=== PATIENT | male | born 1960 | race Caucasian/White ===

== ENCOUNTER 2018-07-06 23:12 | Observation (INO) | payer OTHER, MEDICARE, SELFPAY ==
[2018-07-06] VITALS (7 sets, daily range): BP systolic 119; BP diastolic 63; PULSE 124–129; RESP 12–21; TEMP 40.1; O2SAT 93–96
--- NOTE | 2018-07-06 23:17 | W.ED.GENAD ---
Discharge Plan Disposition Patient Disposition: [facility] INPATIENT Condition: Fair Discharge Details Chief Complaint: Urinary Clinical Impression: Acute kidney injury, Sepsis due to urinary tract infection Reason For Visit: BONNY Primary Care Provider: [facility] ED Provider: Provider,Temporary Home Meds and New Rx's Prescriptions: No Action amitriptyline 150 MG tablet 150 mg PO HS RF: 0 glyburide 5 MG tablet 10 mg PO BID RF: 0 losartan 100 MG tablet 100 mg PO QAM RF: 0 amlodipine 10 MG tablet 10 mg PO DAILY RF: 0 aspirin [Aspir-81] 81 MG tablet,delayed release (DR/EC) 81 mg PO DAILY RF: 0 cyclobenzaprine 10 MG tablet 10 mg PO HS RF: 0 cyanocobalamin (vitamin B-12) 1,000 MCG/1 ML solution 1,000 mcg IJ Q30D RF: 0 insulin glargine [Lantus U-100 Insulin] 100 UNITS/ML solution 50 units Sub-Q HS RF: 0 oxycodone 5 MG tablet 5 mg PO Q4H WHILE AWAKE PRNRF: 0 acetaminophen 325 MG tablet 650 mg PO TID PRNRF: 0 fluticasone 16 GM spray,suspension 1 spry Intranasal BID RF: 0 cholecalciferol (vitamin D3) 1,000 UNIT capsule 1,000 unit PO DAILY RF: 0 atorvastatin [Lipitor] 40 MG tablet 40 mg PO QPM RF: 0 multivitamin [Multi-Day] 1 EACH tablet 1 tab PO DAILY RF: 0 modafinil 200 MG tablet 200 mg PO BID RF: 0 ascorbic acid (vitamin C) [Vitamin C] 500 MG tablet 1 tab PO DAILY RF: 0 ferrous sulfate 325 MG tablet 1 tab PO DAILY RF: 0 ibuprofen 200 MG tablet 400 mg PO DIRECTED RF: 0 cinnamon bark 500 MG capsule 1,000 mg PO BID RF: 0 Patient's Own Medication 1 EACH Misc 2 tab PO HS RF: 0 Discharge Data Discharge Physician: Jerad Jansen Medical Decision Making [facility] Narrative Medical decision making narrative: 58 yo male with hx of DM, HTN, HLD, who comes in with fever and weakness worsening throughout the day and difficulty urinating starting this morning. HE is moving from this area to [place] and came back from [place] recently and states he didn't stop often to urinate. HE denies headaches, cough, abdominal pain other than mild suprapubic discomfort. Pt is noted to have a fever and tachycardia here, suspect sepsis, and given symptoms likely urinary source. Will give fluids and give dose of ceftriaxone while awaiting lab results. Pt remains hd stable, HR now 110, feeling mildly better. Labs show wbc of 22, lactate of 1.5, and urine appears infected as well. Ceftriaxone given ,will admit for urosepsis Differential Diagnosis pyelo, urosepsis, pneumonia Imaging Data Radiologic Study: Attestation: I personally reviewed and interpreted this imaging study as follows: Imaging: X-Ray My impression: no acute findings Radiologist's impression: no acute findings Lab Data Lab results reviewed: Yes I reviewed the patient's lab results. HPI - General Adult General Mode of arrival: EMS. Date/Time Provider Initiated Documentation: 07/06/18 23:14. Limitations to Documentation: no limitations. Information obtained by: patient. History of Present Illness 58 year old M presents to the emergency department with the chief complaint of weakness, described as moderate, and is localized to the abdomen (complaining of suprapubic pain). Patient reports no radiation. Patient started experiencing this hour(s) (15) and it has been other (worsening). No relieving factors improve symptom(s), No exacerbating factors reported . Patient notes other (difficulty urinating, fevers). Patient did receive the following treatments prior to arrival, none Related Data Home Medications Medication Instructions Recorded Confirmed amitriptyline 150 mg PO HS 03/19/13 07/06/18 amlodipine 10 mg PO DAILY 03/19/13 07/06/18 aspirin [Aspir-81] 81 mg PO DAILY 03/19/13 07/06/18 cyanocobalamin (vitamin B-12) 1,000 mcg IJ Q30D 03/19/13 07/06/18 cyclobenzaprine 10 mg PO HS 03/19/13 07/06/18 glyburide 10 mg PO BID 03/19/13 07/06/18 losartan 100 mg PO QAM 03/19/13 07/06/18 insulin glargine [Lantus U-100 50 units SUB-Q HS 06/27/14 07/06/18 Insulin] oxycodone 5 mg PO Q4H WHILE AWAKE PRN 06/27/14 07/06/18 acetaminophen 650 mg PO TID PRN 08/23/14 07/06/18 cholecalciferol (vitamin D3) 1,000 unit PO DAILY 08/23/14 07/06/18 fluticasone 1 spry INTRANASAL BID 08/23/14 07/06/18 Patient's Own Medication 2 tab PO HS 11/22/16 07/06/18 ascorbic acid (vitamin C) [Vitamin 1 tab PO DAILY 11/22/16 07/06/18 C] atorvastatin [Lipitor] 40 mg PO QPM 11/22/16 07/06/18 cinnamon bark 1,000 mg PO BID 11/22/16 07/06/18 ferrous sulfate 1 tab PO DAILY 11/22/16 07/06/18 ibuprofen 400 mg PO DIRECTED 11/22/16 07/06/18 modafinil 200 mg PO BID 11/22/16 07/06/18 multivitamin [Multi-Day] 1 tab PO DAILY 11/22/16 07/06/18 Allergies Allergy/AdvReac Type Severity Reaction Status Date / Time No Known Allergies Allergy Verified 07/06/18 23:22 Review of Systems Review of Systems All systems reviewed & are unremarkable except as noted in HPI and below Constitutional Reports chills, Reports fever(s) and Reports weakness Eyes Patient Denies loss of vision ENT Denies change in voice Cardiovascular Denies chest pain and Denies dyspnea Respiratory Denies dyspnea Gastrointestinal Denies abdominal pain, Denies nausea and Denies vomiting Genitourinary Reports dysuria Musculoskeletal Denies joint swelling Integumentary/Breasts Denies rash Neurologic Denies loss of vision and Reports weakness Psychiatric Denies depression Endocrine Denies cold intolerance and Denies heat intolerance Allergic/Immunologic Reports urticaria [facility] Social History Smoking/Tobacco Use Status: Current-Occasional Exam Const General: no acute distress Orientation: alert [facility] Head: normal to inspection Ears: external ears normal General nose exam: external nose normal Eyes General: appearance normal, both eyes and all related structures Neck Neck: normal visual inspection Resp Effort & Inspection: normal respiratory effort and able to speak in complete sentences Cardio Rate: tachycardic Rhythm: regular rhythm GI Inspection: obesity Palpation: soft, no guarding and nontender Skin General skin exam: no rashes or lesions noted Neuro General: alert and oriented x3 Extrem General: normal to inspection Psych Mental Status: mental status grossly normal
--- NOTE | 2018-07-06 23:23 | ED.GENADUL_ITS ---
Discharge Plan Disposition Patient Disposition: [facility] INPATIENT Condition: Fair Discharge Details Chief Complaint: Urinary Clinical Impression: Acute kidney injury, Sepsis due to urinary tract infection Reason For Visit: BONNY [facility] Care [facility] Provider: Provider,Temporary Home Meds and New Rx's Prescriptions: No Action amitriptyline 150 MG tablet 150 mg PO HS RF: 0 glyburide 5 MG tablet 10 mg PO BID RF: 0 losartan 100 MG tablet 100 mg PO QAM RF: 0 amlodipine 10 MG tablet 10 mg PO DAILY RF: 0 aspirin [Aspir-81] 81 MG tablet,delayed release (DR/EC) 81 mg PO DAILY RF: 0 cyclobenzaprine 10 MG tablet 10 mg PO HS RF: 0 cyanocobalamin (vitamin B-12) 1,000 MCG/1 ML solution 1,000 mcg IJ Q30D RF: 0 insulin glargine [Lantus U-100 Insulin] 100 UNITS/ML solution 50 units Sub-Q HS RF: 0 oxycodone 5 MG tablet 5 mg PO Q4H WHILE AWAKE PRNRF: 0 acetaminophen 325 MG tablet 650 mg PO TID PRNRF: 0 fluticasone 16 GM spray,suspension 1 spry Intranasal BID RF: 0 cholecalciferol (vitamin D3) 1,000 UNIT capsule 1,000 unit PO DAILY RF: 0 atorvastatin [Lipitor] 40 MG tablet 40 mg PO QPM RF: 0 multivitamin [Multi-Day] 1 EACH tablet 1 tab PO DAILY RF: 0 modafinil 200 MG tablet 200 mg PO BID RF: 0 ascorbic acid (vitamin C) [Vitamin C] 500 MG tablet 1 tab PO DAILY RF: 0 ferrous sulfate 325 MG tablet 1 tab PO DAILY RF: 0 ibuprofen 200 MG tablet 400 mg PO DIRECTED RF: 0 cinnamon bark 500 MG capsule 1,000 mg PO BID RF: 0 Patient's Own Medication 1 EACH Misc 2 tab PO HS RF: 0 Discharge Data Discharge Physician: Jerad Jansen Medical Decision Making [facility] Narrative Medical decision making narrative: 58 yo male with hx of DM, HTN, HLD, who comes in with fever and weakness worsening throughout the day and difficulty urinating starting this morning. HE is moving from this area to [place] and came back from [place] recently and states he didn't stop often to urinate. HE denies headaches, cough, abdominal pain other than mild suprapubic discomfort. Pt is noted to have a fever and tachycardia here, suspect sepsis, and given symptoms likely urinary source. Will give fluids and give dose of ceftriaxone while awaiting lab results. Pt remains hd stable, HR now 110, feeling mildly better. Labs show wbc of 22, lactate of 1.5, and urine appears infected as well. Ceftriaxone given ,will admit for urosepsis Differential Diagnosis pyelo, urosepsis, pneumonia Imaging Data Radiologic Study: Attestation: I personally reviewed and interpreted this imaging study as follows: Imaging: X-Ray My impression: no acute findings Radiologist's impression: no acute findings Lab Data Lab results reviewed: Yes I reviewed the patient's lab results. HPI - General Adult General Mode of arrival: EMS . Date/Time Provider Initiated Documentation: 07/06/18 23:14 . Limitations to Documentation: no limitations . Information obtained by: patient . History of Present Illness 58 year old M presents to the emergency department with the chief complaint of weakness, described as moderate, and is localized to the abdomen ( complaining of suprapubic pain). Patient reports no radiation. Patient started experiencing this hour(s) (15) and it has been other (worsening). No relieving factors improve symptom(s), No exacerbating factors reported . Patient notes other (difficulty urinating, fevers). Patient did receive the following treatments prior to arrival, none Related Data Home Medications Medication Instructions Recorded Confirmed amitriptyline 150 mg PO HS 03/19/13 07/06/18 amlodipine 10 mg PO DAILY 03/19/13 07/06/18 aspirin [Aspir-81] 81 mg PO DAILY 03/19/13 07/06/18 cyanocobalamin (vitamin B-12) 1,000 mcg IJ Q30D 03/19/13 07/06/18 cyclobenzaprine 10 mg PO HS 03/19/13 07/06/18 glyburide 10 mg PO BID 03/19/13 07/06/18 losartan 100 mg PO QAM 03/19/13 07/06/18 insulin glargine [Lantus U-100 50 units SUB-Q HS 06/27/14 07/06/18 Insulin] oxycodone 5 mg PO Q4H WHILE AWAKE PRN 06/27/14 07/06/18 acetaminophen 650 mg PO TID PRN 08/23/14 07/06/18 cholecalciferol (vitamin D3) 1,000 unit PO DAILY 08/23/14 07/06/18 fluticasone 1 spry INTRANASAL BID 08/23/14 07/06/18 Patient's Own Medication 2 tab PO HS 11/22/16 07/06/18 ascorbic acid (vitamin C) [Vitamin 1 tab PO DAILY 11/22/16 07/06/18 C] atorvastatin [Lipitor] 40 mg PO QPM 11/22/16 07/06/18 cinnamon bark 1,000 mg PO BID 11/22/16 07/06/18 ferrous sulfate 1 tab PO DAILY 11/22/16 07/06/18 ibuprofen 400 mg PO DIRECTED 11/22/16 07/06/18 modafinil 200 mg PO BID 11/22/16 07/06/18 multivitamin [Multi-Day] 1 tab PO DAILY 11/22/16 07/06/18 Allergies Allergy/AdvReac Type Severity Reaction Status Date / Time No Known Allergies Allergy Verified 07/06/18 23:22 Review of Systems Review of Systems All systems reviewed & are unremarkable except as noted in HPI and below Constitutional Reports chills, Reports fever(s) and Reports weakness Eyes Patient Denies loss of vision ENT Denies change in voice Cardiovascular Denies chest pain and Denies dyspnea Respiratory Denies dyspnea Gastrointestinal Denies abdominal pain, Denies nausea and Denies vomiting Genitourinary Reports dysuria Musculoskeletal Denies joint swelling Integumentary/Breasts Denies rash Neurologic Denies loss of vision and Reports weakness Psychiatric Denies depression Endocrine Denies cold intolerance and Denies heat intolerance Allergic/Immunologic Reports urticaria [facility] Social History Smoking/Tobacco Use Status: Current-Occasional Exam Const General: no acute distress Orientation: alert [facility] Head: normal to inspection Ears: external ears normal General nose exam: external nose normal Eyes General: appearance normal, both eyes and all related structures Neck Neck: normal visual inspection Resp Effort & Inspection: normal respiratory effort and able to speak in complete sentences Cardio Rate: tachycardic Rhythm: regular rhythm GI Inspection: obesity Palpation: soft, no guarding and nontender Skin General skin exam: no rashes or lesions noted Neuro General: alert and oriented x3 Extrem General: normal to inspection Psych Mental Status: mental status grossly normal
[2018-07-06] MEDS: Acetaminophen 500 MG TAB 1000 MG PO (23:42)
[2018-07-06] MEDS: Normal Saline 1,000 ML 1000 ML IV (23:43)
[2018-07-06 23:44] LABS: Lactate-non-spesis 1.5 mmol/L (0.6-1.4)
[2018-07-06 23:53] LABS: Bilirubin Negative (Negative); Blood Trace-intact (Negative); Glucose Negative (Negative); Ketones Trace mg/dL (Negative); Leukocyte Esterase Small (Negative); Nitrite Positive (Negative); Urobilinogen 0.2 EU/dL (Up TO 0.2)
--- NOTE | 2018-07-06 23:55 | DI.RAD_ITS ---
SYMPTOM/DIAGNOSIS: FEVER PORTABLE AP CHEST: Comparison is made with 11/21/16. The exam is limited by respiratory motion and poor pulmonary inflation. The heart size is within normal limits for projection. The lungs are grossly clear. IMPRESSION: Limited exam. No gross evidence of an acute abnormality.
[2018-07-07] VITALS (53 sets, daily range): BP systolic 72–144; BP diastolic 36–89; PULSE 53–134; RESP 11–29; TEMP 36.8–39.2; O2SAT 91–98
[2018-07-07 00:02] LABS: Abs Immature Grans 0.08 k/cumm (0.0-0.09); HCT 30.1 % (40.0-50.0); HGB 10.2 g/dL (13.5-17.5); Mean Corp. HGB Concentration 33.9 g/dL (32.0-36.0); Mean Corpuscular Hemoglobin 30.2 pg (27.0-33.0); Mean Corpuscular Volume 89.1 fL (80-95); Mean Platelet Volume 9.7 fL (8.0-11.0); Platelet Count 331 x1000/uL (130-400); RBC 3.38 m/cumm (4.50-6.00); White Blood Cell Count 22.48 k/cumm (4.4-10.8)
[2018-07-07 00:05] LABS: Clarity Sl Cloudy
[2018-07-07 00:06] LABS: Bacteria Many HPF (Negative); C & S Indicated? C&S Done As Ordered; Casts Negative LPF (Negative); Crystals Negative HPF (Negative); Epithelial Cells Negative HPF (Negative); Mucus Negative (Negative); Other Cells Negative (Negative); RBC Negative (0-2); WBC >50 HPF (0-5)
[2018-07-07 00:17] LABS: ALT 42 U/L (12-78); AST 52 U/L (15-37); Alkaline Phosphatase 83 U/L (46-116); Anion Gap 11.6 mmol/L (3-11); BUN 27 mg/dL (7-18); Bilirubin, Total 0.6 mg/dL (0.2-1.0); CO2 24.4 mmol/L (21.0-32.0); CREATININE 1.34 mg/dL (0.70-1.30); Calcium 9.2 mg/dL (8.5-10.1); Chloride 98 mmol/L (98-107); Estimated GFR 54.56 (mL/min/1.73m2); Glucose 220 mg/dL (70-100); Magnesium 1.5 mg/dL (1.8-2.4); Potassium 4.3 mmol/L (3.5-5.1); Sodium 134 mmol/L (136-145); Total Protein 7.4 g/dL (6.4-8.2)
[2018-07-07 00:20] LABS: Absolute Lymphocyte Count 2.25 k/cumm (1.2-3.4); Absolute Monocyte Count 1.35 k/cumm (0.11-0.7); Absolute Neutrophil Count 18.88 k/cumm (1.2-6.7)
[2018-07-07 00:21] LABS: Diff Comment Manual Differential; RBC Morphology Normal
[2018-07-07] MEDS: Normal Saline Flush 10 ML SYR IVP (00:24)
--- NOTE | 2018-07-07 00:36 | DI.VRAD_ITS ---
EXAM: XR Chest, 1 View CLINICAL HISTORY: 58 years old, male; Signs and symptoms; Fever TECHNIQUE: Frontal view of the chest. COMPARISON: CR - CHEST 2 VIEWS PA,LAT 11/21/2016 8:34 PM FINDINGS: Lungs: Pulmonary vasculature is within normal limits. Lungs are clear. Pleural space: No pneumothorax. No pleural effusion. Heart: Cardiomediastinal silhouette is within normal limits taking into account technique. Mediastinum: See above. Bones/joints: Osseous structures are within normal limits. IMPRESSION: No acute findings in the chest. Dictated and Authenticated by: Lizzeth Horton MD. Ordering:GENIA BARLOW MD
[2018-07-07] MEDS: Lactated Ringers 1,000 ML 999 ML IV (01:16)
[2018-07-07] MEDS: oxyCODONE 5 MG TAB PO ×4 (01:52→19:41)
[2018-07-07] MEDS: Enoxaparin 40 MG/0.4 ML SYR SC (04:16)
[2018-07-07] MEDS: Acetaminophen 325 MG TAB PO ×3 (05:14→19:42)
[2018-07-07] MEDS: Lactated Ringers 1,000 ML 250 ML IV ×2 (06:40→06:42)
--- NOTE | 2018-07-07 07:00 | DI.US_ITS ---
SYMPTOM/DIAGNOSIS: UROSEPSIS RENAL ULTRASOUND: The kidneys are normal in size and show normal parenchymal thickness and echogenicity. The liver is noted to show fatty infiltration. Cholelithiasis is also present. No renal calculi or hydronephrosis is seen. There is no perinephric fluid collection. The prevoid bladder volume measured 94 cc's. A morton catheter is seen in the bladder. There is mild bladder wall thickening and trabeculation. There is no postvoid residual. IMPRESSION: Mildly thickened trabeculated bladder wall. No evidence of hydronephrosis.
[2018-07-07 07:01] LABS: Abs Immature Grans 0.06 k/cumm (0.0-0.09); HCT 26.8 % (40.0-50.0); HGB 8.7 g/dL (13.5-17.5); Mean Corp. HGB Concentration 32.5 g/dL (32.0-36.0); Mean Corpuscular Hemoglobin 29.3 pg (27.0-33.0); Mean Corpuscular Volume 90.2 fL (80-95); Mean Platelet Volume 9.1 fL (8.0-11.0); Platelet Count 288 x1000/uL (130-400); RBC 2.97 m/cumm (4.50-6.00); White Blood Cell Count 19.49 k/cumm (4.4-10.8)
[2018-07-07 07:36] LABS: Absolute Lymphocyte Count 2.73 k/cumm (1.2-3.4); Absolute Monocyte Count 2.53 k/cumm (0.11-0.7); Absolute Neutrophil Count 14.23 k/cumm (1.2-6.7); Atypical Lymphocytes % 0
[2018-07-07] MEDS: Insulin Aspart 300 UNITS/3 ML PEN SC ×2 (08:37→12:11)
[2018-07-07] MEDS: Multivitamin TAB 1 TAB PO (08:43)
[2018-07-07] MEDS: Aspirin E.C. 81 MG TABEC PO (08:43)
[2018-07-07] MEDS: Losartan 50 MG TAB 100 MG PO (08:43)
[2018-07-07] MEDS: Ferrous Sulfate 325 MG TAB PO (08:43)
[2018-07-07] MEDS: amLODIPine 10 MG TAB PO (08:43)
[2018-07-07] MEDS: Gabapentin 600 MG TAB PO ×3 (08:43→19:42)
[2018-07-07] MEDS: MODAFINIL 200 MG TAB PO (09:43)
[2018-07-07] MEDS: metFORMIN 500 MG TAB 1000 MG PO ×2 (09:43→19:41)
--- NOTE | 2018-07-07 09:45 | PHARADMIT ---
Addendum entered by Domenica Marc 07/08/18 13:46: Pharmacy Note Subjective improved per progress note Objective HR-93 other VS okay labs are pending Assessment ceftriaxone continues, levofloxacin PO ordered blood cultures no growth at 24 hours; urine culture grew E.coli Plan possible discharge tomorrow on PO abx if remains afebrile overnight Original Note: Admission Pharmacy Clinical Review urosepsis Code Status Full Code Current Weight 132 kg Renally Cleared and Narrow Therapeutic Index Meds Crcl ~65.00 mL/min current meds okay QTc Value / Action Taken BP Control, Fever BP 111/55 Tmax 40.1 Electrolytes reviewed pending this morning, Na 134, mag 1.5 yesterday DVT Prophylaxis enoxaparin Opiate Usage / Scheduled Bowel Regimen Ordered prn/prn Plt/SCr for Heparin / Enoxaparin plt 288 SCr 1.34 yesterday INR for Warfarin n/a H/H stable, WBC/Bands h/h 8.7/26.8 wbc 19.49 Antibiotic appropriateness ceftriaxone Cultures and Sensitivities blood and urine cultures pending Surgical ABX d/c within 24 hr n/a DM control / Insulin Dosing BG 220 has metformin, scheduled glargine and aspart and sliding scale aspart ordered Heart Failure (Check EF%) (RUDDY's, B-Block, Diuretics) amlodipine, losartan IV to PO Switch n/a Home Meds Reviewed -multiple vitamin D analogs: multivitamin and cholecalciferol -ibuprofen may enhance the adverse/toxic effects of aspirin (bleed risk) -multiple [employer] depressants: oxycodone, amitriptyline, cyclobenzaprine, gabapentin Home Meds Not Ordered ascorbic acid, cyanocobalamin, glyburide, HCTZ, ibuprofen, garcinia Comments
--- NOTE | 2018-07-07 09:48 | PDOC.CMIN ---
- If Service Date Differs Date of service: 07/07/18 Time of Service: 09:48 Care Management Initial Assess REASON FOR HOSPITALIZATION:: Urosepsis. PAST MEDICAL HISTORY/PAST SURGICAL HISTORY:: Colitis, sepsis, acute kidney injury, diabetes. 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 He has been in the process of moving his belongings via truck over the course of the summer. Luis and his , Preeti, have four adult children between them; one residing in [place] and the other three in [place], [place], and [place]. He requires assistance with dressing and transportation but reports that he is independent with his other ADLs. Luis uses a wheel chair and walker when ambulating. CURRENT FUNCTIONAL STATUS:: Pt presented at interdisciplinary rounds. Luis is lying in bed in the ICU when CM visits this morning. He is engaged in conversation and is talkative. Luis reports that he purchased a home in [place], [place] and has been moving his belongings [facility] via truck over the summer. He has had several recent falls with the most recent happening at the [facility] in [place], resulting in his transfer to [facility]. He reports that he is scheduled for surgery in [place] on 07/17 and that he is due to be back in [place] on 07/13 for tests and preparation. Luis has a morton that he will likely discharge with. He reports that he rarely drinks water because he doesn't want to have to stop and pee all the time while driving. Luis is receiving IV fluids and antibiotics. ADVANCE DIRECTIVES:: None on file at [facility]. Has patient been provided with information about the portal?: No Did the patient sign up for the portal?: No CODE STATUS:: Full Code INSURANCE COVERAGE / FINANCIAL ISSUES:: Medicare, [employer]. CURRENT HOME/COMMUNITY SERVICES/EQUIPMENT:: No current home or community services. Luis uses a wheel chair and walker for ambulating. PRIMARY CARE PHYSICIAN:: [facility]. POTENTIAL DISCHARGE NEEDS:: Follow up appointment with PCP and plan of care. PATIENT/FAMILY EDUCATION NEEDS:: Discharge education, any limitations and follow up plan of care. Ask Me Three discussion. ANTICIPATED BARRIERS TO DISCHARGE:: No anticipated barriers to discharge. TRANSPORTATION:: Luis will transport via private vehicle with his friend, Miki Viramontes. PLAN:: Luis will discharge when medically ready per MD. Anticipate pt will discharge with no services and follow up with PCP in [place]. CM will continue to provide support to patient and care team regarding discharge planning and disposition.
--- NOTE | 2018-07-07 09:52 | HPE_ITS ---
CHIEF COMPLAINT Fevers, chills, rigors, urinary incontinence and dysuria. ASSESSMENT AND PLAN 1. Urosepsis. 2. Acute urinary retention, etiology is not certain, but maybe secondary to neurogenic bladder due to spinal stenosis, or may be due to diabetic neurogenic bladder. 3. Poorly controlled diabetes. 4. Spinal stenosis. 5. Anemia of undetermined etiology. Historically, he has had no melena or hematochezia, although he does have a past history of colitis. He is chronically maintained on vitamin B12 and iron supplementation. He had an acute drop overnight from 10.2 to 8.7, it is probably dilutional due to the IV fluids he has received. 6. History of essential hypertension. 7. History of hyperlipidemia. 8. Diabetic peripheral neuropathy. PLAN 1. The patient will continue to receive parenteral antibiotics with adjustment of his antibiotics based on his urine and blood cultures. 2. We will ask Urology to see him regarding acute urinary retention. I discussed the case with Dr. Gonzalo Hutson; he indicated the patient may need to maintain the Hunter catheter until after his spinal surgery. 3. Will try to get records from his [facility] [place] and [place] to find out the extent of his spinal stenosis. The patient may need further evaluation while he is hospitalized here by our Orthopedic Surgeons , and possible further imaging os his spine to see if there has been compression of his spinal stenosis. The case was signed out to Dr. Jerad Dunaway, the day hospitalist. HISTORY OF PRESENT ILLNESS This is a 58-year-old male with a past medical history of type-2 diabetes mellitus that has been under poor control until recently requiring insulin, as well as oral hypoglycemic agents, COPD, hypertension, hyperlipidemia , DJD. The patient is originally from [place], but he has been living in [place] for the past 33 years after he moved up here with his who is a [place] of [place]. They are in the process of moving back to [place]. He says that they have made three trips in the past month. Earlier this summer, he had a fall and noticing he was having trouble picking up his left leg. He saw his primary care provider at [facility] and had a workup including MRI scans of his lumbosacral spine. He was told that he had severe DJD and spinal stenosis. He was called with the results while he was in [place] earlier this summer, and he was told to go straight to the Emergency Room. [facility] [place], where he saw an Orthopedic Surgeon, and had repeat MRI scans and they have set him up tentatively for surgery for July 17, he is supposed to be back in [place] for preop testing on July 13. The patient has been having problems ambulating because of weakness in the left leg. He is unable to flex the left thigh at the hip and pick the leg up off the ground and he has been getting around with the use of a walker. He has had a series of three falls since April 02. His current complaints include fevers, chills, rigors and urinary incontinence. These have all started since his return from [place]. They left [place] TuesdayJuly 03 and by Tuesday morning, he was having fevers, chills and urinary frequency and urinary incontinence; and last night, he was acting incoherent. His family reported that he was not making any sense, and they brought him to the Emergency Room last night. He was seen by Dr. Jerad Jansen, who ordered blood and urine cultures and started him on Rocephin 2 grams IV. The patient is admitted for urosepsis. However, the other concern is that he has had acute urinary retention. Last night, we had to put a Hunter catheter in because he had 1000 cc in his bladder after a post void trial. The concern is that he may have neurogenic bladder on the basis of his spinal stenosis. The patient admits that on the trip back from [place] that he did not stop very often to void and was avoiding drinking much water for fear that he would have to stop to void. He also has not been compliant with his medications for the past few days. Prior to that, he was working to get his blood sugars under control by a combination of use of his Lantus, glyburide and metformin, along with a ketogenic diet. PAST MEDICAL/SURGICAL HISTORY 1. Type-2 diabetes mellitus for the last 20 years, currently requiring Lantus, glyburide and metformin. 2. Chronic obstructive pulmonary disease. 3. Essential hypertension. 4. Degenerative joint disease of the spine, this includes lumbosacral, as well as cervical spine. 5. Carpal tunnel surgery x2. 6. History of vasectomy. 7. History of tonsillectomy. 8. Obstructive sleep apnea for which he wears CPAP. He forgot to bring his CPAP with him from [place]. 9. History of bilateral knee surgeries with arthroscopy. 10. History of gastroesophageal reflux disease. ALLERGIES He says he has a reaction to one of his blood pressure medicines he used to be on, which caused a cough. He did not remember the name of it. MEDICATIONS Home medications include, Acetaminophen 650 mg three times a day as needed. Amitriptyline 150 mg at bedtime Amlodipine 10 mg daily. Ascorbic acid 1 tablet daily. Aspirin 81 mg daily. Atorvastatin 20 mg q p.m. ? Vitamin D3 1000 units daily. Cinnamon bark 1000 mg twice a day. Cyanocobalamin 1000 mcg IM every 30 days. Cyclobenzaprine 10 mg at bedtime. Ferrous sulfate 1 tablet daily. Fluticasone nasal spray, 1 spray each nostril twice a day. Gabapentin 600 mg t.i.d. Glyburide 10 mg p.o. b.i.d. Hydrochlorothiazide 25 mg daily. Ibuprofen 400 mg as needed. Lantus listed as 50 units at bedtime, but he told me that he is actually taking 60 units at bedtime and 66 in the morning. Losartan 100 mg q. a.m. Metformin 1000 mg twice a day. Modafinil 200 mg twice a day. Multivitamin 1 daily. Oxycodone 5 mg q. 4 hours p.r.n. pain. Ranitidine 150 mg twice a day. REVIEW OF SYSTEMS CONSTITUTIONAL - Positive fevers, chills and rigors. HEENT - He has had some recent blurred vision. He has history of blocked tear ducts. ENT - He has had some painful swallowing and complains of a sore tongue. CARDIOVASCULAR - Negative for chest pain, pressure, palpitations, or syncope. GASTROINTESTINAL - Positive for constipation. Negative for melena nor hematochezia. RESPIRATORY - He has a chronic cough that is minimally productive of whitish mucus. No purulent sputum. No hemoptysis. MUSCULOSKELETAL - Positive for chronic lower back pain and radicular pain down his left leg along with numbness in his left foot. INTEGUMENTARY - He complains of dry skin for which he uses skin lotion. NEUROLOGIC - Positive for numbness in his left foot. He also has peripheral neuropathy in both feet. He has radiculopathy down his left leg to his left foot. GENITOURINARY - See HPI. The rest of review of systems is unremarkable, except as listed in HPI. SOCIAL HISTORY He is for the last 33 years. He has three daughters from his current , and one daughter from his previous . The patient was honorably discharged from the [employer] after eight years of service. He was discharged in 1985. He has worked various jobs since then including he used to work for the [employer]. He has worked in [employer] stores in [place]. 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 Tobacco history - He is a former smoker. He quit at the age of 47. Alcohol history - He has a history of heavy alcohol use. He quit in 1983 or when he got . Although he says, he will occasionally have a beer. He says a six-pack of beer will last him all summer. FAMILY HISTORY Family history is pertinent for diabetes mellitus in his father, who has dementia, as well as large cell vasculitis. Diabetes in his paternal grandfather. There is no family history of coronary artery disease that he is aware of. His mother has Alzheimer's dementia. A paternal grandfather had leukemia. Maternal grandfather had mesothelioma due to occupational exposure. PHYSICAL EXAMINATION VITAL SIGNS - Temperature 38.2. Pulse 114 to 120. Sinus tachycardia. Blood pressure is 108/49. Respiratory rate 14. Oxygen saturation 93%. GENERAL APPEARANCE - An obese middle-age male who is alert and oriented to person, place, time and circumstance. HEENT - Remarkable in that he has an aphthous ulcer on the right side of his tongue. The rest of the oral mucosa appears to be normal. NECK - Neck is supple. No JVD. Normal carotid pulses, although tachycardic. No bruits. No cervical lymphadenopathy. LUNGS - Lungs are clear to auscultation. HEART - Heart is tachycardic without murmur, rub or gallop. ABDOMEN - Abdomen is obese, soft, and nontender. Hunter catheter is in place and draining clear yellow urine. EXTREMITIES - Lower extremities without peripheral cyanosis or edema. He has normal pedal pulses. NEUROLOGIC - He has diminished sensation to light over both feet, worse on the left compared to the right. Sensation is intact to noxious stimuli. I could not elicit DTR's in either of his ankle reflexes or knee reflexes on either side. Motor strength in the right leg was limited secondary to back pain. He seemed to have good dorsiflexion and plantar flexion of the right foot. He is also able to resist me with hip flexion and extension on the right leg. The left leg , he is unable to hold the left up against gravity. Strength at the knee and foot appear to be intact. Cranial nerves are grossly intact. Upper extremity strength is normal. Inspection, palpation and testing of sensation of the perineum, as well as digital rectal exam, the patient has intact sensation to light touch and pain over the perineum. Rectal tone is normal. He has an enlarged prostate. There was no stool in the rectal vault. LABORATORY STUDIES CMP last night showed an elevated blood sugar of 220, elevated BUN of 27, creatinine 1.34, normal electrolytes, with the acception of magnesium is low at 1.5. White count was elevated at 22,000, it has come down to 19,000 this morning. Hemoglobin was 10.2 grams, it dropped to 8.7 grams this morning. URINALYSIS - Urinalysis showed positive nitrites, trace of blood, trace of ketones, trace of protein, greater than 50 white cells per high-powered field, many bacteria.
--- NOTE | 2018-07-07 10:06 | INITIAL_ITS ---
- If Service Date Differs Date of service: 07/07/18 Time of Service: 09:48 Care Management Initial Assess REASON FOR HOSPITALIZATION:: Urosepsis. PAST MEDICAL HISTORY/PAST SURGICAL HISTORY:: Colitis, sepsis, acute kidney injury, diabetes. 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 He has been in the process of moving his belongings via truck over the course of the summer. Luis and his , Preeti, have four adult children between them; one residing in [place] and the other three in [place], [place], and [place]. He requires assistance with dressing and transportation but reports that he is independent with his other ADLs. Luis uses a wheel chair and walker when ambulating. CURRENT FUNCTIONAL STATUS:: Pt presented at interdisciplinary rounds. Luis is lying in bed in the ICU when CM visits this morning. He is engaged in conversation and is talkative. Luis reports that he purchased a home in [place], [place] and has been moving his belongings between the two [facility] via truck over the summer. He has had several recent falls with the most recent happening at the [facility] in [place], resulting in his transfer to [facility]. He reports that he is scheduled for surgery in [place] on 07/17 and that he is due to be back in [place] on for tests and preparation. Luis has a morton that he will likely discharge with. He reports that he rarely drinks water because he doesn't want to have to stop and pee all the time while driving. Luis is receiving IV fluids and antibiotics. ADVANCE DIRECTIVES:: None on file at [facility]. Has patient been provided with information about the portal?: No Did the patient sign up for the portal?: No CODE STATUS:: Full Code INSURANCE COVERAGE / FINANCIAL ISSUES:: Medicare, [employer]. CURRENT HOME/COMMUNITY SERVICES/EQUIPMENT:: No current home or community services. Luis uses a wheel chair and walker for ambulating. PRIMARY CARE PHYSICIAN:: [facility]. POTENTIAL DISCHARGE NEEDS:: Follow up appointment with PCP and plan of care. PATIENT/FAMILY EDUCATION NEEDS:: Discharge education, any limitations and follow up plan of care. Ask Me Three discussion. ANTICIPATED BARRIERS TO DISCHARGE:: No anticipated barriers to discharge. TRANSPORTATION:: Luis will transport via private vehicle with his friend, Miki Viramontes. PLAN:: Luis will discharge when medically ready per MD. Anticipate pt will discharge with no services and follow up with PCP in [place]. CM will continue to provide support to patient and care team regarding discharge planning and disposition.
--- NOTE | 2018-07-07 10:27 | W.UROLOGYCON ---
Date of service: 07/07/18 Time of Service: 11:55 History of Present Illness Chief Complaint: Incomplete Bladder emptying Narrative: This is a 58-year-old who usually receive his medical care through the [facility] system. He and his are in the process of moving from [place] out to [place]. Over the past 3-6 months, he has been having difficulty raising the left leg. He has been sustaining multiple falls. Initially he walked with the aid of a cane. More recently, he has needed a walker. He was evaluated by his providers at the [facility] system in [place] in February of this year. He was identified as having significant spinal stenosis. The patient is unable to tell me exactly what level was involved. The patient tells me that he received a call from his [place] provider instructing him to go to the emergency room in [place] immediately. He has been evaluated by a spine surgeon and surgery is being planned for later this month. The spine surgeon in [place] recommended against traveling, but the patient decided to make one more trip back to [place]. During the drive, Mr. Blair estimates that they would spend up to 18 hours in the car without stopping for restroom breaks. He was not drinking much fluid. He was also having difficulty getting to the bathroom with his mobility issues. Just yesterday he began having incontinent episodes. He was voiding frequently. He could tell that he needed to void. He did not notice any discoloration to the urine, but he did notice a foul smell. He also began having fevers and chills. His family brought him to the emergency room when he became more confused. A Hunter catheter was placed in over a liter of urine was obtained. Mr. Ramesh tells me that at baseline he gets up an average of once a night to void. He is able to generate a good stream. He tells me that he always avoids a very large volumes at a time. He has never had previous urinary tract infection. He has never had a previous kidney stone. He has not had any prior urologic surgery. He is unable to recall the last time he had a bowel movement, but he tells me he does not feel constipated Review of Systems Constitutional Reports chills, Reports fever(s) and Reports frequent falls Eyes Patient Denies change in vision Cardiovascular Denies chest pain and Denies palpitations Respiratory Denies cough and Denies hemoptysis Gastrointestinal Denies abdominal pain Genitourinary Reports as per HPI Musculoskeletal Reports abnormal gait and Reports radiating pain into limb Neurologic Reports abnormal gait, Reports confusion and Reports frequent falls Psychiatric Reports confusion Endocrine Denies palpitations Hematologic/Lymphatic Denies easy bleeding PFSH Social History Smoking/Tobacco Use Status: Current-Occasional Exam Narrative Exam Narrative: He is not in current distress. He is cooperative. He feels slightly warm, but does not appear flushed or septic. His chest wall motion is normal. He does not appear short of breath at rest. His abdomen is soft with no guarding or rebound tenderness. I do not palpate the kidneys liver or spleen. A Hunter catheter is in place. The catheter is draining clear urine. The perineal sensation is intact. The external sphincter tone likewise is intact. He is awake alert and oriented. Results Labs : 07/07/18 11:05 07/06/18 23:23 Laboratory Results - last 24 hr 07/06/18 07/06/18 07/06/18 23:23 23:23 23:23 WBC 22.48 H RBC 3.38 L Hgb 10.2 L Hct 30.1 L MCV 89.1 MCH 30.2 MCHC 33.9 RDW 14.0 Plt Count 331 MPV 9.7 Immature Gran % See Differential Neutrophils % 77.0 Lymphocytes % 10.0 Monocytes % 6.0 Eosinophils % 0.0 Basophils % 0.0 Absolute Neutrophils 18.88 H Band Neutrophils 7.0 Absolute Lymphocytes 2.25 Absolute Monocytes 1.35 H Absolute Eosinophils 0.00 Absolute Basophils 0.00 Differential Comment Manual differential Atypical Lymphocytes RBC Morphology Normal Sodium 134 L Potassium 4.3 Chloride 98 Carbon Dioxide 24.4 Anion Gap 11.6 H BUN 27 H Creatinine 1.34 H Estimated GFR/1.73 m2 54.56 Glucose 220 H Lactate 1.5 H Calcium 9.2 Magnesium 1.5 L Total Bilirubin 0.6 AST 52 H ALT 42 Alkaline Phosphatase 83 Total Protein 7.4 Albumin 3.0 L Urine Color Urine Clarity Urine pH Ur Specific [place] Urine Protein Urine Ketones Urine Blood Urine Nitrite Urine Bilirubin Urine Urobilinogen Ur Leukocyte Esterase Urine RBC Urine WBC Ur Epithelial Cells Urine Crystals Urine Bacteria Urine Casts Urine Mucus Urine Other Ur Culture Indicated? Urine Glucose 09/13/18 09/14/18 09/14/18 23:47 06:45 06:45 WBC 19.49 H RBC 2.97 L Hgb 8.7 L Hct 26.8 L MCV 90.2 MCH 29.3 MCHC 32.5 RDW 14.0 Plt Count 288 MPV 9.1 Immature Gran % See Differential Neutrophils % 73.0 Lymphocytes % 14.0 Monocytes % 13.0 Eosinophils % 0.0 Basophils % 0.0 Absolute Neutrophils 14.23 H Band Neutrophils 0.0 Absolute Lymphocytes 2.73 Absolute Monocytes 2.53 H Absolute Eosinophils 0.00 Absolute Basophils 0.00 Differential Comment Atypical Lymphocytes 0 RBC Morphology Sodium Potassium Chloride Carbon Dioxide Anion Gap BUN Creatinine Estimated GFR/1.73 m2 Glucose Lactate 1.0 Calcium Magnesium Total Bilirubin AST ALT Alkaline Phosphatase Total Protein Albumin Urine Color Yellow Urine Clarity Sl cloudy Urine pH 6.0 Ur Specific [place] 1.010 Urine Protein Trace H Urine Ketones Trace H Urine Blood Trace-intact H Urine Nitrite Positive H Urine Bilirubin Negative Urine Urobilinogen 0.2 Ur Leukocyte Esterase Small H Urine RBC Negative Urine WBC >50 Ur Epithelial Cells Negative Urine Crystals Negative Urine Bacteria Many Urine Casts Negative Urine Mucus Negative Urine Other Negative Ur Culture Indicated? C&s done as ordered Urine Glucose Negative Assessment and Plan (1) Urinary retention with incomplete bladder emptying: Current visit: Yes Status: Acute He has a number of possible etiologies for his incomplete bladder emptying. A combination of etiologies is quite likely. Some of this issue may be functional. With all of the travel that he has been doing, he has been taking infrequent bathroom breaks. He has not been hydrating very well. He has been adjusting his diet to try to bring his diabetes and better control. His bowel function may have been affected as well. It is well-known that constipation and urinary retention can be linked. He certainly could have some obstructive component related to his prostate. He does not describe much voiding difficulty prior to this episode, however. He could have a neurogenic component to his voiding either based on his diabetes or his spinal stenosis. I am a bit relieved to find his perineal sensation and sphincter tone intact. If he was staying in our area long-term, I might suggest trying to optimize his chance of voiding and then giving him a voiding trial. If he was still unable to void, we would likely recommend a urodynamic study to see if his bladder was able to generate enough pressure to void. Since he is in the process of relocating and has already [facility] [place] a more practical maneuver might need to leave his catheter until he gets back home. He is in agreement with this plan and is anxious to get back to [place]. Any voiding trials or urodynamic studies could certainly be performed in [place] just as well as here. (2) Sepsis syndrome: Current visit: Yes Status: Acute All of his cultures are pending. In the meantime, broad-spectrum antibiotics are appropriate.
[2018-07-07] MEDS: Fluticasone NASAL SPRAY 16 GM BTL NS ×2 (10:57→19:44)
[2018-07-07 11:14] LABS: HCT 28.9 % (40.0-50.0); HGB 9.6 g/dL (13.5-17.5)
[2018-07-07 11:30] LABS: Hemoglobin A1C 9.3 % (4.5-6.2)
[2018-07-07 15:17] LABS: ALT 33 U/L (12-78); AST 45 U/L (15-37); Albumin 2.7 g/dL (3.4-5.0); Alkaline Phosphatase 74 U/L (46-116); Anion Gap 9.5 mmol/L (3-11); BUN 22 mg/dL (7-18); Bilirubin, Total 0.5 mg/dL (0.2-1.0); CO2 23.5 mmol/L (21.0-32.0); CREATININE 1.37 mg/dL (0.70-1.30); Calcium 8.3 mg/dL (8.5-10.1); Chloride 102 mmol/L (98-107); Estimated GFR 53.18 (mL/min/1.73m2); Glucose 172 mg/dL (70-100); Potassium 3.6 mmol/L (3.5-5.1); Sodium 135 mmol/L (136-145); Total Protein 6.8 g/dL (6.4-8.2)
[2018-07-07] MEDS: Lactated Ringers 1,000 ML 80 ML IV (16:20)
--- NOTE | 2018-07-07 16:21 | W.PM.PROGNOT ---
Date of service: 07/07/18 Time of Service: 16:21 Assessment and Plan (1) Sepsis syndrome: Current visit: Yes Status: Acute Patient presented with severe sepsis. He is responded well to IV fluids and IV antibiotics. The urine is growing out E. coli greater than 100,000 colonies. At this point it appears he went into urinary retention which caused a complicated urinary tract infection resulting in sepsis. Continue on IV antibiotics. Continue IV fluids. Monitor for adequate urine output. (2) Diabetes: Current visit: Yes Status: Chronic Hemoglobin A1c 9.3%. He has been trying to follow a diabetic diet. Family brought in bags of supplemental food they consider low in carbohydrates. We talked about limiting total oral intake to avoid further weight gain. Monitor blood sugars closely. Avoid overeating. (3) Urinary retention with incomplete bladder emptying: Current visit: Yes Status: Acute Seen by Dr. Hutson from urology. He felt that his urinary retention was multifactorial. He recommended keeping the Morton catheter in place. Patient is due to have spine surgery on 07/17/2018. It may be reasonable to keep the Morton in place until his surgery. (4) Acute kidney injury: Current visit: No Status: Acute Renal ultrasound shows evidence of trabeculation but otherwise no acute abnormality of the kidneys. Continue IV fluids and recheck electrolytes and creatinine tomorrow. (5) Discharge planning issues: Current visit: Yes Status: Acute Continue to monitor in the ICU. He is observation status. If he is not fully improved by tomorrow he may need to be switched over to acute care status. Subjective Patient reports: feels better Interval history since last seen: Patient admitted during the overnight hours with sepsis syndrome. He had been getting progressively worse and was becoming incoherent. Since admission, IV fluids, IV antibiotics he is markedly improved. Now coherent and interacting with family members appropriately. He has a Morton catheter in place. He is taking p.o. well. Exam Narrative Exam Narrative: He has been sleeping intermittently throughout the day. When he is awake he has been coherent and lucid. He was able to give a complete history. Const General: cooperative and no acute distress Nutritional Appearance: overweight Orientation: alert, awake and oriented x3 Chest Chest: normal inspection of the chest Resp Effort & Inspection: normal respiratory effort Auscultation: clear to auscultation bilaterally Cardio Rate: regular rate Rhythm: regular rhythm Heart Sounds: S1 normal, S2 normal and no murmurs GI Inspection: normal to inspection Palpation: soft and nontender Male General Exam: Yes other (Morton in place and draining well.) Skin General skin exam: no rashes or lesions noted Neuro General: no focal motor deficits Extrem General: normal to inspection and no edema Objective Objective Clinical Data: Abnormal lab results 07/06/18 07/06/18 07/06/18 Range/Units 23:23 23:23 23:23 WBC 22.48 H (4.4-10.8) k/cumm RBC 3.38 L (4.50-6.00) m/cumm Hgb 10.2 L (13.5-17.5) g/dL Hct 30.1 L (40.0-50.0) % Absolute Neutrophils 18.88 H (1.2-6.7) k/cumm Absolute Monocytes 1.35 H (0.11-0.7) k/cumm Sodium 134 L (136-145) mmol/L Anion Gap 11.6 H (3-11) mmol/L BUN 27 H (7-18) mg/dL Creatinine 1.34 H (0.70-1.30) mg/dL Glucose 220 H (70-100) mg/dL Hemoglobin A1c (4.5-6.2) % Lactate 1.5 H (0.6-1.4) mmol/L Calcium (8.5-10.1) mg/dL Magnesium 1.5 L (1.8-2.4) mg/dL AST 52 H (15-37) U/L Albumin 3.0 L (3.4-5.0) g/dL Urine Protein (Negative) mg/dL Urine Ketones (Negative) mg/dL Urine Blood (Negative) Urine Nitrite (Negative) Ur Leukocyte Esterase (Negative) 07/06/18 07/07/18 07/07/18 Range/Units 23:47 06:45 06:45 WBC 19.49 H (4.4-10.8) k/cumm RBC 2.97 L (4.50-6.00) m/cumm Hgb 8.7 L (13.5-17.5) g/dL Hct 26.8 L (40.0-50.0) % Absolute Neutrophils 14.23 H (1.2-6.7) k/cumm Absolute Monocytes 2.53 H (0.11-0.7) k/cumm Sodium 135 L (136-145) mmol/L Anion Gap (3-11) mmol/L BUN 22 H (7-18) mg/dL Creatinine 1.37 H (0.70-1.30) mg/dL Glucose 172 H (70-100) mg/dL Hemoglobin A1c (4.5-6.2) % Lactate (0.6-1.4) mmol/L Calcium 8.3 L (8.5-10.1) mg/dL Magnesium (1.8-2.4) mg/dL AST 45 H (15-37) U/L Albumin 2.7 L (3.4-5.0) g/dL Urine Protein Trace H (Negative) mg/dL Urine Ketones Trace H (Negative) mg/dL Urine Blood Trace-intact H (Negative) Urine Nitrite Positive H (Negative) Ur Leukocyte Esterase Small H (Negative) 07/07/18 07/07/18 Range/Units 11:05 11:05 WBC (4.4-10.8) k/cumm RBC (4.50-6.00) m/cumm Hgb 9.6 L (13.5-17.5) g/dL Hct 28.9 L (40.0-50.0) % Absolute Neutrophils (1.2-6.7) k/cumm Absolute Monocytes (0.11-0.7) k/cumm Sodium (136-145) mmol/L Anion Gap (3-11) mmol/L BUN (7-18) mg/dL Creatinine (0.70-1.30) mg/dL Glucose (70-100) mg/dL Hemoglobin A1c 9.3 H (4.5-6.2) % Lactate (0.6-1.4) mmol/L Calcium (8.5-10.1) mg/dL Magnesium (1.8-2.4) mg/dL AST (15-37) U/L Albumin (3.4-5.0) g/dL Urine Protein (Negative) mg/dL Urine Ketones (Negative) mg/dL Urine Blood (Negative) Urine Nitrite (Negative) Ur Leukocyte Esterase (Negative) Vital Signs Temp 37.2 C 07/07/18 13:00 Pulse 110 H 07/07/18 14:00 Resp 21 07/07/18 14:00 BP 116/64 07/07/18 14:00 Pulse Ox 94 L 07/07/18 09:38 Intake & Output 07/06/18 07/07/18 07/07/18 23:59 11:59 23:59 Intake Total 1694.167 / 1694.167 435.833 / 435.833 Output Total 2360 / 2360 490 / 490 Balance -665.833 / -665.833 -54.167 / -54.167 Weight 133.7 kg 132.5 kg Intake: IV 804.167 / 804.167 195.833 / 195.833 Oral 890 / 890 240 / 240 Output: Urine 2360 / 2360 490 / 490 Other: Urine Color Yellow Light Arianne Urine Appearance Clear Comment Morton intact and draining well. Morton intact and draining well. Laboratory Results WBC 19.49 k/cumm (4.4-10.8) H 07/07/18 06:45 RBC 2.97 m/cumm (4.50-6.00) L 07/07/18 06:45 Hgb 9.6 g/dL (13.5-17.5) L 07/07/18 11:05 Hct 28.9 % (40.0-50.0) L 07/07/18 11:05 MCV 90.2 fL (80-95) 07/07/18 06:45 MCH 29.3 pg (27.0-33.0) 07/07/18 06:45 MCHC 32.5 g/dL (32.0-36.0) 07/07/18 06:45 RDW 14.0 % (11.8-14.1) 07/07/18 06:45 Plt Count 288 x1000/uL (130-400) 07/07/18 06:45 MPV 9.1 fL (8.0-11.0) 07/07/18 06:45 Immature Gran % See Differential 07/07/18 06:45 Neutrophils % 73.0 07/07/18 06:45 Lymphocytes % 14.0 07/07/18 06:45 Monocytes % 13.0 07/07/18 06:45 Eosinophils % 0.0 07/07/18 06:45 Basophils % 0.0 07/07/18 06:45 Absolute Neutrophils 14.23 k/cumm (1.2-6.7) H 07/07/18 06:45 Band Neutrophils 0.0 % 07/07/18 06:45 Absolute Lymphocytes 2.73 k/cumm (1.2-3.4) 07/07/18 06:45 Absolute Monocytes 2.53 k/cumm (0.11-0.7) H 07/07/18 06:45 Absolute Eosinophils 0.00 k/cumm (0.0-0.7) 07/07/18 06:45 Absolute Basophils 0.00 k/cumm (0.0-0.2) 07/07/18 06:45 Differential Comment Manual differential 07/06/18 23:23 Atypical Lymphocytes 0 07/07/18 06:45 RBC Morphology Normal 07/06/18 23:23 Sodium 135 mmol/L (136-145) L 07/07/18 06:45 Potassium 3.6 mmol/L (3.5-5.1) 07/07/18 06:45 Chloride 102 mmol/L (98-107) 07/07/18 06:45 Carbon Dioxide 23.5 mmol/L (21.0-32.0) 07/07/18 06:45 Anion Gap 9.5 mmol/L (3-11) 07/07/18 06:45 BUN 22 mg/dL (7-18) H 07/07/18 06:45 Creatinine 1.37 mg/dL (0.70-1.30) H 07/07/18 06:45 Estimated GFR/1.73 m2 53.18 (mL/min/1.73m2) 07/07/18 06:45 Glucose 172 mg/dL (70-100) H 07/07/18 06:45 Hemoglobin A1c 9.3 % (4.5-6.2) H 07/07/18 11:05 Lactate 1.0 mmol/L (0.6-1.4) 07/07/18 06:45 Calcium 8.3 mg/dL (8.5-10.1) L 07/07/18 06:45 Magnesium 1.5 mg/dL (1.8-2.4) L 07/06/18 23:23 Total Bilirubin 0.5 mg/dL (0.2-1.0) 07/07/18 06:45 AST 45 U/L (15-37) H 07/07/18 06:45 ALT 33 U/L (12-78) 07/07/18 06:45 Alkaline Phosphatase 74 U/L (46-116) 07/07/18 06:45 Total Protein 6.8 g/dL (6.4-8.2) 07/07/18 06:45 Albumin 2.7 g/dL (3.4-5.0) L 07/07/18 06:45 Urine Color Yellow (Yellow) 07/06/18 23:47 Urine Clarity Sl cloudy 07/06/18 23:47 Urine pH 6.0 (5-8) 07/06/18 23:47 Ur Specific [place] 1.010 (1.005-1.025) 07/06/18 23:47 Urine Protein Trace mg/dL (Negative) H 07/06/18 23:47 Urine Ketones Trace mg/dL (Negative) H 07/06/18 23:47 Urine Blood Trace-intact (Negative) H 07/06/18 23:47 Urine Nitrite Positive (Negative) H 07/06/18 23:47 Urine Bilirubin Negative (Negative) 07/06/18 23:47 Urine Urobilinogen 0.2 EU/dL (Up TO 0.2) 07/06/18 23:47 Ur Leukocyte Esterase Small (Negative) H 07/06/18 23:47 Urine RBC Negative (0-2) 07/06/18 23:47 Urine WBC >50 HPF (0-5) 07/06/18 23:47 Ur Epithelial Cells Negative HPF (Negative) 07/06/18 23:47 Urine Crystals Negative HPF (Negative) 07/06/18 23:47 Urine Bacteria Many HPF (Negative) 07/06/18 23:47 Urine Casts Negative LPF (Negative) 07/06/18 23:47 Urine Mucus Negative (Negative) 07/06/18 23:47 Urine Other Negative (Negative) 07/06/18 23:47 Ur Culture Indicated? C&s done as ordered 07/06/18 23:47 Urine Glucose Negative mg/dL (Negative) 07/06/18 23:47 Renal U/S The kidneys are normal in size and show normal parenchymal thickness and echogenicity. The liver is noted to show fatty infiltration. Cholelithiasis is also present. No renal calculi or hydronephrosis is seen. There is no perinephric fluid collection. The prevoid bladder volume measured 94 cc's. A morton catheter is seen in the bladder. There is mild bladder wall thickening and trabeculation. There is no postvoid residual. IMPRESSION: Mildly thickened trabeculated bladder wall. No evidence of hydronephrosis.
[2018-07-07] MEDS: Atorvastatin 40 MG TAB PO (19:42)
[2018-07-07] MEDS: Cyclobenzaprine 10 MG TAB PO (21:28)
[2018-07-07] MEDS: Amitriptyline 50 MG TAB 150 MG PO (21:28)
[2018-07-07] MEDS: Insulin Glargine 300 UNITS/3 ML PEN 60 UNITS SC (21:29)
[2018-07-07] MEDS: Normal Saline 500 ML 50 ML IV (22:00)
[2018-07-08] VITALS (42 sets, daily range): BP systolic 122–144; BP diastolic 62–77; PULSE 93–118; RESP 12–27; TEMP 37.1–37.8; O2SAT 94–100
[2018-07-08] MEDS: Enoxaparin 40 MG/0.4 ML SYR SC (05:19)
[2018-07-08] MEDS: Lactated Ringers 1,000 ML 80 ML IV ×2 (05:27→17:47)
[2018-07-08] MEDS: Aspirin E.C. 81 MG TABEC PO (08:31)
[2018-07-08] MEDS: metFORMIN 500 MG TAB 1000 MG PO ×2 (08:31→20:46)
[2018-07-08] MEDS: Gabapentin 600 MG TAB PO ×2 (08:31→14:12)
[2018-07-08] MEDS: MODAFINIL 200 MG TAB PO ×2 (08:31→12:21)
[2018-07-08] MEDS: Losartan 50 MG TAB 100 MG PO (08:31)
[2018-07-08] MEDS: amLODIPine 10 MG TAB PO (08:31)
[2018-07-08] MEDS: Multivitamin TAB 1 TAB PO (08:31)
[2018-07-08] MEDS: Ferrous Sulfate 325 MG TAB PO (08:31)
[2018-07-08] MEDS: Fluticasone NASAL SPRAY 16 GM BTL NS ×2 (08:32→20:47)
[2018-07-08] MEDS: Docusate Sodium 100 MG CAP PO (08:51)
[2018-07-08] MEDS: oxyCODONE 5 MG TAB PO ×3 (08:53→22:38)
--- NOTE | 2018-07-08 11:57 | PDOC.CMPRO ---
Care Management Progress Note S/O: Luis was lying in bed, elevated when CM met with him. His friend was at his bedside. He discussed how he had been in [place] gathering his belongings as he is from [place] and though he resided in [place] most of his adult life, he always wanted to return to [place] and now lives there primarily. 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 He has made a few trips back to [place] retrieve his belongings and is looking forward to returning home. Luis states [facility] supports are better in [place]. Luis is pleasant in interaction and jokes around in a light-hearted, appropriate way. A: 58 year old male admitted to [facility] 07/07/18 for Urosepsis P: Luis will discharge when medically ready per MD with no additional services and follow up with his PCP in [place]. He is scheduled for spinal surgery in [place] on 07/17/18 and [facility] He continues to be monitored in the ICU as a MED/SURG patient. CM will continue to follow and support Luis as needed.
--- NOTE | 2018-07-08 12:37 | CMPROGNOTE_ITS ---
Care Management Progress Note S/O: Luis was lying in bed, elevated when CM met with him. His friend was at his bedside. He discussed how he had been in [place] gathering his belongings as he is from [place] and though he resided in [place] most of his adult life, he always wanted to return to [place] and now lives there primarily. 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 He has made a few trips back to [place] retrieve his belongings and is looking forward to returning home. Luis states [facility] supports are better in [place]. Luis is pleasant in interaction and jokes around in a light-hearted, appropriate way. A: 58 year old male admitted to [facility] 07/07/18 for Urosepsis P: Luis will discharge when medically ready per MD with no additional services and follow up with his PCP in [place]. He is scheduled for spinal surgery in [place] on 07/17/18 and [facility] He continues to be monitored in the ICU as a MED/SURG patient. CM will continue to follow and support Luis as needed.
--- NOTE | 2018-07-08 13:24 | PGE_ITS ---
Date of service: 07/08/18 Time of Service: 13:23 Assessment and Plan (1) Sepsis syndrome: Current visit: Yes Status: Acute Patient presented with sepsis symptoms including hypotension and tachycardia along with acute cognitive changes and acute renal injury. He was found to have acute urinary retention required placement of Hunter catheter and eventually his blood cultures came back no growth but his urine cultures grew E. coli which was pansensitive. He is responded well to IV fluids and IV Rocephin. At this point he is hemodynamically stable and his cognition has returned to his baseline. He can be transferred out of the intensive care unit to the medical/surgical floor on oral antibiotics and if he remains afebrile overnight and he could be discharged with continued oral antibiotics for another 12 days. (2) Urinary retention with incomplete bladder emptying: Current visit: Yes Status: Acute Dr. Gnozalo Hutson, urologist, saw the patient and agreed with continued Hunter catheter until the patient has his surgery for his spinal stenosis. Patient will be educated on the care of his Hunter catheter. (3) Diabetes: Current visit: Yes Status: Chronic His blood sugars have been improving over the last 24 hours with glucose readings in the 120s-160s. However his long-term blood sugar control is been less than optimal as his A1c is elevated at 9.3% (4) Hypertension: Current visit: Yes Status: Chronic Blood pressures improved as he is responded to the IV fluids and antibiotics. He has had no hypotension nor is he had any hypertension. (5) E coli infection: Current visit: Yes Status: Acute As above per my plans under sepsis syndrome Subjective Patient reports: feels better Interval history since last seen: Overall the patient is feeling markedly better. Denies any pain or nausea or vomiting. He has had no fevers overnight. Hunter catheter is draining clear yellow urine. Blood cultures were no growth ?2 sets after 24 hours. Urine culture is growing E. coli which was pansensitive. He remains on ceftriaxone 2 g IV daily. He is eager to return to [place] as he scheduled for preoperative testing and is scheduled for laminectomy to treat his spinal stenosis. I told him that we would switch him to oral ciprofloxacin and if he has no fevers overnight we can discharge him home however he will need to maintain a Hunter catheter until after his spinal surgery to prevent recurrent obstructive uropathy. Exam Const General: cooperative, healthy appearing and no acute distress GI Inspection: normal to inspection Palpation: soft Percussion: normal to percussion Auscultation: normal bowel sounds Other: Hunter catheter is draining clear yellow urine Objective Objective Clinical Data: Abnormal lab results 07/07/18 Range/Units 06:45 Sodium 135 L (136-145) mmol/L BUN 22 H (7-18) mg/dL Creatinine 1.37 H (0.70-1.30) mg/dL Glucose 172 H (70-100) mg/dL Calcium 8.3 L (8.5-10.1) mg/dL AST 45 H (15-37) U/L Albumin 2.7 L (3.4-5.0) g/dL Vital Signs Temp 37.1 C 07/08/18 12:12 Pulse 93 H 07/08/18 12:04 Resp 17 07/08/18 12:04 BP 137/75 07/08/18 12:04 Pulse Ox 96 07/07/18 19:47 Intake & Output 07/07/18 07/08/18 07/08/18 23:59 11:59 23:59 Intake Total 2332.166 / 2332.166 1000.667 / 1000.667 Output Total 1939 / 0 0 / 1899 Balance 392.166 / 392.166 -899.333 / -899.333 Intake: IV 692.166 / 692.166 450.667 / 450.667 Oral 1640 / 1640 550 / 550 Output: Urine 1939 / 0 1899 / 1899 Other: Urine Color Yellow Pale Yellow Urine Appearance Clear Clear Comment Hunter intact and draining well. Laboratory Results WBC 19.49 k/cumm (4.4-10.8) H 07/07/18 06:45 RBC 2.97 m/cumm (4.50-6.00) L 07/07/18 06:45 Hgb 9.6 g/dL (13.5-17.5) L 07/07/18 11:05 Hct 28.9 % (40.0-50.0) L 07/07/18 11:05 MCV 90.2 fL (80-95) 07/07/18 06:45 MCH 29.3 pg (27.0-33.0) 07/07/18 06:45 MCHC 32.5 g/dL (32.0-36.0) 07/07/18 06:45 RDW 14.0 % (11.8-14.1) 07/07/18 06:45 Plt Count 288 x1000/uL (130-400) 07/07/18 06:45 MPV 9.1 fL (8.0-11.0) 07/07/18 06:45 Immature Gran % See Differential 07/07/18 06:45 Neutrophils % 73.0 07/07/18 06:45 Lymphocytes % 14.0 07/07/18 06:45 Monocytes % 13.0 07/07/18 06:45 Eosinophils % 0.0 07/07/18 06:45 Basophils % 0.0 07/07/18 06:45 Absolute Neutrophils 14.23 k/cumm (1.2-6.7) H 07/07/18 06:45 Band Neutrophils 0.0 % 07/07/18 06:45 Absolute Lymphocytes 2.73 k/cumm (1.2-3.4) 07/07/18 06:45 Absolute Monocytes 2.53 k/cumm (0.11-0.7) H 07/07/18 06:45 Absolute Eosinophils 0.00 k/cumm (0.0-0.7) 07/07/18 06:45 Absolute Basophils 0.00 k/cumm (0.0-0.2) 07/07/18 06:45 Differential Comment Manual differential 07/06/18 23:23 Atypical Lymphocytes 0 07/07/18 06:45 RBC Morphology Normal 07/06/18 23:23 Sodium 135 mmol/L (136-145) L 07/07/18 06:45 Potassium 3.6 mmol/L (3.5-5.1) 07/07/18 06:45 Chloride 102 mmol/L (98-107) 07/07/18 06:45 Carbon Dioxide 23.5 mmol/L (21.0-32.0) 07/07/18 06:45 Anion Gap 9.5 mmol/L (3-11) 07/07/18 06:45 BUN 22 mg/dL (7-18) H 07/07/18 06:45 Creatinine 1.37 mg/dL (0.70-1.30) H 07/07/18 06:45 Estimated GFR/1.73 m2 53.18 (mL/min/1.73m2) 07/07/18 06:45 Glucose 172 mg/dL (70-100) H 07/07/18 06:45 Hemoglobin A1c 9.3 % (4.5-6.2) H 07/07/18 11:05 Lactate 1.0 mmol/L (0.6-1.4) 07/07/18 06:45 Calcium 8.3 mg/dL (8.5-10.1) L 07/07/18 06:45 Magnesium 1.5 mg/dL (1.8-2.4) L 07/06/18 23:23 Total Bilirubin 0.5 mg/dL (0.2-1.0) 07/07/18 06:45 AST 45 U/L (15-37) H 07/07/18 06:45 ALT 33 U/L (12-78) 07/07/18 06:45 Alkaline Phosphatase 74 U/L (46-116) 07/07/18 06:45 Total Protein 6.8 g/dL (6.4-8.2) 07/07/18 06:45 Albumin 2.7 g/dL (3.4-5.0) L 07/07/18 06:45 Urine Color Yellow (Yellow) 07/06/18 23:47 Urine Clarity Sl cloudy 07/06/18 23:47 Urine pH 6.0 (5-8) 07/06/18 23:47 Ur Specific [place] 1.010 (1.005-1.025) 07/06/18 23:47 Urine Protein Trace mg/dL (Negative) H 07/06/18 23:47 Urine Ketones Trace mg/dL (Negative) H 07/06/18 23:47 Urine Blood Trace-intact (Negative) H 07/06/18 23:47 Urine Nitrite Positive (Negative) H 07/06/18 23:47 Urine Bilirubin Negative (Negative) 07/06/18 23:47 Urine Urobilinogen 0.2 EU/dL (Up TO 0.2) 07/06/18 23:47 Ur Leukocyte Esterase Small (Negative) H 07/06/18 23:47 Urine RBC Negative (0-2) 07/06/18 23:47 Urine WBC >50 HPF (0-5) 07/06/18 23:47 Ur Epithelial Cells Negative HPF (Negative) 07/06/18 23:47 Urine Crystals Negative HPF (Negative) 07/06/18 23:47 Urine Bacteria Many HPF (Negative) 07/06/18 23:47 Urine Casts Negative LPF (Negative) 07/06/18 23:47 Urine Mucus Negative (Negative) 07/06/18 23:47 Urine Other Negative (Negative) 07/06/18 23:47 Ur Culture Indicated? C&s done as ordered 07/06/18 23:47 Urine Glucose Negative mg/dL (Negative) 07/06/18 23:47 Renal ultrasound demonstrates mildly thickened trabeculated bladder wall but no hydronephrosis
[2018-07-08] MEDS: LEVOFLOXACIN 500 MG, LEVOFLOXACIN 250 MG 750 MG PO (14:12)
[2018-07-08 17:04] LABS: Abs Immature Grans 0.03 k/cumm (0.0-0.09); Absolute Basophil Count 0.02 k/cumm (0.0-0.2); Absolute Eosinophil Count 0.07 k/cumm (0.0-0.7); Absolute Lymphocyte Count 2.09 k/cumm (1.2-3.4); Absolute Monocyte Count 0.97 k/cumm (0.11-0.7); Absolute Neutrophil Count 9.21 k/cumm (1.2-6.7); Basophils % 0.2; Eosinophils % 0.6; HCT 30.8 % (40.0-50.0); HGB 9.9 g/dL (13.5-17.5); Immature Grans % 0.2; Lymphocytes % 16.9; Mean Corp. HGB Concentration 32.1 g/dL (32.0-36.0); Mean Corpuscular Hemoglobin 29.2 pg (27.0-33.0); Mean Corpuscular Volume 90.9 fL (80-95); Mean Platelet Volume 9.6 fL (8.0-11.0); Monocytes % 7.8; Neutrophils % 74.3; Platelet Count 291 x1000/uL (130-400); RBC 3.39 m/cumm (4.50-6.00); RBC Distribution Width 13.8 % (11.8-14.1); White Blood Cell Count 12.39 k/cumm (4.4-10.8)
[2018-07-08 17:16] LABS: Anion Gap 11.8 mmol/L (3-11); BUN 14 mg/dL (7-18); CO2 26.2 mmol/L (21.0-32.0); CREATININE 1.02 mg/dL (0.70-1.30); Calcium 9.2 mg/dL (8.5-10.1); Chloride 101 mmol/L (98-107); Glucose 64 mg/dL (70-100); Potassium 3.6 mmol/L (3.5-5.1); Sodium 139 mmol/L (136-145)
[2018-07-08] MEDS: Insulin Aspart 300 UNITS/3 ML PEN SC (17:48)
[2018-07-08] MEDS: Atorvastatin 40 MG TAB PO (20:44)
[2018-07-08] MEDS: Gabapentin 300 MG CAP 600 MG (20:46)
[2018-07-08] MEDS: Amitriptyline 50 MG TAB 150 MG PO (22:38)
[2018-07-08] MEDS: Cyclobenzaprine 10 MG TAB PO (22:38)
[2018-07-08] MEDS: Insulin Glargine 300 UNITS/3 ML PEN 60 UNITS SC (22:39)
[2018-07-09] VITALS (22 sets, daily range): BP systolic 129–133; BP diastolic 71–76; PULSE 81–110; RESP 12–25; TEMP 36.7–37; O2SAT 93–94
[2018-07-09] MEDS: oxyCODONE 5 MG TAB PO ×2 (04:42→15:54)
[2018-07-09] MEDS: Enoxaparin 40 MG/0.4 ML SYR SC (04:42)
[2018-07-09] MEDS: LEVOFLOXACIN 500 MG, LEVOFLOXACIN 250 MG 750 MG PO (04:42)
[2018-07-09] MEDS: Lactated Ringers 1,000 ML 80 ML IV (06:35)
[2018-07-09 06:54] LABS: Abs Immature Grans 0.03 k/cumm (0.0-0.09); Absolute Basophil Count 0.02 k/cumm (0.0-0.2); Absolute Eosinophil Count 0.04 k/cumm (0.0-0.7); Absolute Lymphocyte Count 1.96 k/cumm (1.2-3.4); Absolute Monocyte Count 0.94 k/cumm (0.11-0.7); Absolute Neutrophil Count 6.58 k/cumm (1.2-6.7); Basophils % 0.2; Eosinophils % 0.4; HCT 29.2 % (40.0-50.0); HGB 9.6 g/dL (13.5-17.5); Immature Grans % 0.3; Lymphocytes % 20.5; Mean Corp. HGB Concentration 32.9 g/dL (32.0-36.0); Mean Corpuscular Hemoglobin 29.4 pg (27.0-33.0); Mean Corpuscular Volume 89.3 fL (80-95); Mean Platelet Volume 9.3 fL (8.0-11.0); Monocytes % 9.8; Neutrophils % 68.8; Platelet Count 321 x1000/uL (130-400); RBC 3.27 m/cumm (4.50-6.00); RBC Distribution Width 13.6 % (11.8-14.1); White Blood Cell Count 9.57 k/cumm (4.4-10.8)
[2018-07-09] MEDS: amLODIPine 10 MG TAB PO (08:57)
[2018-07-09] MEDS: Aspirin E.C. 81 MG TABEC PO (08:57)
[2018-07-09] MEDS: metFORMIN 500 MG TAB 1000 MG PO (08:57)
[2018-07-09] MEDS: MODAFINIL 200 MG TAB PO ×2 (08:57→15:50)
[2018-07-09] MEDS: Ferrous Sulfate 325 MG TAB PO (08:57)
[2018-07-09] MEDS: Multivitamin TAB 1 TAB PO (08:57)
[2018-07-09] MEDS: Losartan 50 MG TAB 100 MG PO (08:57)
[2018-07-09] MEDS: Gabapentin 600 MG TAB PO ×2 (08:57→15:50)
--- NOTE | 2018-07-09 12:53 | CMDISCH_ITS ---
LACE Index Scoring Tool - Questions: Length of Stay (in days): 3 Acuity (Admit via E.D.?): Yes Comorbidities: Diabetes w/o Complication, Chronic Pulmonary Disease E.D. Visits: 1 - Answers: Total Score: 10 Risk of Readmission: High Risk Care Management Discharge Reason for Hospitalization: Urosepsis. Discharge Plan: Luis will discharge when medically ready per MD with no additional services and follow up with his PCP in [place]. He is scheduled for spinal surgery in [place] on 07/17/18 and [facility] He will have new prescription for oral antibiotics upon discharge per MD. He will transport via private vehicle with his friend, Kyle and sister Kelley. Patient/Family Education Needs: Review discharge instructions, discuss Ask Me Three.
--- NOTE | 2018-07-09 16:17 | DSE_ITS ---
DS: Diagnosis Discharge Diagnosis (1) Sepsis syndrome: Status: Acute (2) Urinary retention with incomplete bladder emptying: Status: Acute (3) Diabetes: Status: Chronic (4) Hypertension: Status: Chronic (5) E coli infection: Status: Acute Discharge Plan Disposition Patient Disposition: HOME Condition: Good Discharge Details Chief Complaint: Urinary Reason For Visit: UROSEPSIS Admit Date/Time: 07/07/18 00:40 Admit Provider: Dick Bruno Attending Provider: Dick Bruno Primary Care Provider: [place] ED [facility] [place] Course Hospital Course: Patient was admitted to the hospital with symptoms of fever, rigors, acute confusion and was found to have acute urinary retention and a UTI. He had some mild hypotension that responded to IV fluid resuscitation. Blood cultures were obtained and eventually came back no growth after 48 hours. Urine culture grew E. coli which was pansensitive. Patient was treated with IV Rocephin 2 gm iv daily and switched to Levaquin 750 mg orally daily after his blood cultures came back negative and his urine culture showed pansensitive E. coli. His acute confusion resolved with IV hydration and IV antibiotics. After he was switched to oral antibiotics he had no fevers overnight and therefore was ready for discharge the next morning after he had been switched to oral antibiotics. Imaging studies performed included chest x-ray which demonstrated no acute abnormalities. And a renal ultrasound showed mildly thickened trabeculated bladder wall but no hydronephrosis and no evidence of pyelonephritis nor any kidney stones. Patient's recommended to continue on levofloxacin 750 mg daily for another 12 days for total of 14 days of treatment. Home Meds and New Rx's Prescriptions: New levofloxacin [Levaquin] 750 mg tablet 750 mg PO DAILY Qty: 10 RF: 0 Continue amitriptyline 150 MG tablet 150 mg PO HS RF: 0 glyburide 5 MG tablet 10 mg PO BID RF: 0 losartan 100 MG tablet 100 mg PO QAM RF: 0 amlodipine 10 MG tablet 10 mg PO DAILY RF: 0 aspirin [Aspir-81] 81 MG tablet,delayed release (DR/EC) 81 mg PO DAILY RF: 0 cyclobenzaprine 10 MG tablet 10 mg PO HS RF: 0 cyanocobalamin (vitamin B-12) 1,000 MCG/1 ML solution 1,000 mcg IJ Q30D RF: 0 insulin glargine [Lantus U-100 Insulin] 100 UNITS/ML solution 50 units Sub-Q HS RF: 0 oxycodone 5 MG tablet 5 mg PO Q4H WHILE AWAKE PRNRF: 0 acetaminophen 325 MG tablet 650 mg PO TID PRNRF: 0 fluticasone 16 GM spray,suspension 1 spry Intranasal BID RF: 0 cholecalciferol (vitamin D3) 1,000 UNIT capsule 1,000 unit PO DAILY RF: 0 atorvastatin [Lipitor] 40 MG tablet 40 mg PO QPM RF: 0 multivitamin [Multi-Day] 1 EACH tablet 1 tab PO DAILY RF: 0 modafinil 200 MG tablet 200 mg PO BID RF: 0 ascorbic acid (vitamin C) [Vitamin C] 500 MG tablet 1 tab PO DAILY RF: 0 ferrous sulfate 325 MG tablet 1 tab PO DAILY RF: 0 ibuprofen 200 MG tablet 400 mg PO DIRECTED RF: 0 cinnamon bark 500 MG capsule 1,000 mg PO BID RF: 0 Patient's Own Medication 1 EACH Misc 2 tab PO HS RF: 0 gabapentin 600 mg Tablet 600 mg PO TID RF: 0 metformin 1,000 mg Tablet 1,000 mg PO BID RF: 0 ranitidine HCl 150 mg Tablet 150 mg PO BID RF: 0 hydrochlorothiazide 25 mg Tablet 25 mg PO DAILY RF: 0 Discharge Instructions Instructions: Urinary Tract Infection in Men (DC), Hunter Catheter Placement and Care (DC), Urinary Leg Bag (GEN) Additional Instructions: Be sure to take all of your Levaquin and make an appointment to follow-up with the urologist when you get [place] Stand Alone Forms: Nursing Discharge Form Activity:: tolerated Equipment/Supplies:: has own supplies Diet:: low carbohydrate Discharge Orders Discharge Orders: Discharge Order (Routine); Ordered 07/09/18 Ordered By: Dick Bruno Discharge Data Discharge Date/Time-TO BE ENTERED AT DEPARTURE: 07/09/18 17:30 DS: Data Vitals/I&O Vitals and I&O: Vital Signs Temp 36.7 C 07/09/18 09:05 Pulse 99 H 07/09/18 09:05 Resp 16 07/09/18 09:05 BP 132/76 07/09/18 09:05 Pulse Ox 94 L 07/09/18 09:05 Intake & Output 07/08/18 07/09/18 07/09/18 23:59 11:59 23:59 Intake Total 2786.667 / 2786.667 1350 / 1350 Output Total 4825 / 4825 4275 / 4275 Balance -2038.333 / -2038.333 -2925 / -2925 Weight 129.8 kg Intake: IV 986.667 / 536.513 7980 / 1000 Oral 1800 / 1800 350 / 350 Output: Urine 4825 / 4825 4275 / 4275 Other: Urine Color Pale Pale Yellow Yellow Urine Appearance Clear Clear Stool Occult Blood Negative Stool Size Large Stool Characteristics Soft Brown Voiding Methods Indwelling Catheter Labs on day of discharge: Labs from last 24 hours 07/09/18 07/08/18 07/08/18 06:20 16:35 16:35 WBC 9.57 12.39 H RBC 3.27 L 3.39 L Hgb 9.6 L 9.9 L Hct 29.2 L 30.8 L MCV 89.3 90.9 MCH 29.4 29.2 MCHC 32.9 32.1 RDW 13.6 13.8 Plt Count 321 291 MPV 9.3 9.6 Immature Gran % 0.3 0.2 Neutrophils % 68.8 74.3 Lymphocytes % 20.5 16.9 Monocytes % 9.8 7.8 Eosinophils % 0.4 0.6 Basophils % 0.2 0.2 Absolute Neutrophils 6.58 9.21 H Absolute Lymphocytes 1.96 2.09 Absolute Monocytes 0.94 H 0.97 H Absolute Eosinophils 0.04 0.07 Absolute Basophils 0.02 0.02 Sodium 139 Potassium 3.6 Chloride 101 Carbon Dioxide 26.2 Anion Gap 11.8 H BUN 14 D Creatinine 1.02 Estimated GFR/1.73 m2 >= 60.00 Glucose 64 L D Calcium 9.2 Preliminary micro results at discharge 07/06/18 23:35 Blood Culture - Preliminary Blood NO GROWTH 48 HOURS 07/06/18 23:30 Blood Culture - Preliminary Blood NO GROWTH 48 HOURS
== END 2018-07-09 17:30 | disposition home or self-care (01) ==
LOC: ER 07-07 01:11 → ICU 07-07 01:59
PROVIDERS: Admitting Provider Internal Medicine; Emergency Provider Emergency Medicine; Visit Provider Internal Medicine
DX: A41.9 Sepsis, unspecified organism (principal); N39.0 Urinary tract infection, site not specified; E11.65 Type 2 diabetes mellitus with hyperglycemia; N17.9 Acute kidney failure, unspecified; R33.9 Retention of urine, unspecified; B96.20 Unspecified Escherichia coli [E. coli] as the cause of diseases classified elsewhere; M48.00 Spinal stenosis, site unspecified; D64.9 Anemia, unspecified; I10 Essential (primary) hypertension; E78.5 Hyperlipidemia, unspecified; E11.42 Type 2 diabetes mellitus with diabetic polyneuropathy; Z79.4 Long term (current) use of insulin; J44.9 Chronic obstructive pulmonary disease, unspecified; G47.33 Obstructive sleep apnea (adult) (pediatric); K21.9 Gastro-esophageal reflux disease without esophagitis
CPT/HCPCS: 36410; 36415; 51701; 76770; 80048; 80053; 87040; 87077; 96361; 96365; 99202; 99225; 99233; 99239; 99252; 99285; J1650; 71045; 81003; 81015; 83036; 83605; 83735; 85014; 85018; 85025; 87086; 87186; 99217; 99220; G0378